=== PATIENT | female | born 1990 | race African-American/Black ===

== ENCOUNTER 2019-03-09 12:29 | Emergency (ER) | payer OTHER ==
--- NOTE | 2019-03-09 12:42 | PDOC ---
Rapid Medical Evaluation Chief Complaint: Constipation Time Seen by Provider: 03/09/19 12:38 Medical Evaluation: Allergies Allergy/AdvReac Type Severity Reaction Status Date / Time No Known Allergies Allergy Verified 05/21/18 07:47 03/09/19 12:38 I have performed a brief in-person evaluation of this patient. The patient presents with a chief complaint of: constipation x 4 days, no fevers Nausea/vomiting. no vaginal drainge or bleeding - uncomplicated pregnacy Pertinent physical exam findings: 7Mos preg belly, mild obvious discomfort I have ordered the following: nothing The patient will proceed to the ED for further evaluation. 03/09/19 12:41 Discharge Disposition - Diagnosis Constipation - Referrals - Patient Instructions - Post Discharge Activity
[2019-03-09] MEDS ORDERED: GLYCERIN 1 RECTAL SUPPOSITORY, ADULT PR ONE (12:44)
[2019-03-09 12:47] VITALS: BMI 25.7
[2019-03-09] MEDS ORDERED: GLYCERIN 1 RECTAL SUPPOSITORY, PEDIATRIC RC ONE (12:49)
--- NOTE | 2019-03-09 13:18 | PDOC ---
History of Present Illness - General Chief Complaint: Constipation Stated Complaint: SEVEN MONTH UT/CONSTIPATION Time Seen by Provider: 03/09/19 12:38 History Source: Patient - History of Present Illness Initial Comments: 03/09/19 13:33 33 week female complains of constipation for the last 4 days. Denies abdominal pain, cramping, vaginal bleeding, vaginal discharge.patient reports that the baby is moving well No past medical history Past History - Past Medical History Allergies/Adverse Reactions: Allergies Allergy/AdvReac Type Severity Reaction Status Date / Time No Known Allergies Allergy Verified 03/09/19 12:39 Home Medications: Ambulatory Orders NK [No Known Home Medication] 05/21/18 COPD: No - Suicide/Smoking/Psychosocial Hx Smoking History: Never smoked Have you smoked in the past 12 months: No Hx Alcohol Use: No Drug/Substance Use Hx: No Review of Systems - Review of Systems Able to Perform ROS?: Yes Is the patient limited [place] proficient: No ABD/GI: Yes: Constipated. No: Symptoms Reported, See HPI, Abdominal Distended, Abd. Pain w/ defecation, Blood Streaked Bowels, Diarrhea, Difficulty Swallowing , Nausea, Poor Appetite, Poor Fluid Intake, Rectal Bleeding, Vomiting, Indigestion, Abdominal cramping, Tarry Stools, Other *Physical Exam - Vital Signs Last Vital Signs Temp Pulse Resp BP Pulse Ox 98.3 F 108 H 18 137/70 5 L 03/09/19 12:40 03/09/19 12:40 03/09/19 12:40 03/09/19 12:40 03/09/19 12:40 - Physical Exam General Appearance: Yes: Appropriately Dressed Gastrointestinal/Abdominal: positive: Other (gravid abdomen. nontender) Integumentary: positive: Normal Color, Dry, Warm Neurologic: positive: Fully Oriented, Alert, Normal Mood/Affect ED Treatment Course - Medications Given in the ED: ED Medications Discontinued Medications Generic Name Dose Route Start Last Admin Trade Name Freq PRN Reason Stop Dose Admin Glycerin 1 each 03/09/19 12:44 03/09/19 13:01 Glycerin Suppository Adult - [place] 03/09/19 12:45 1 each ONCE ONE Administration Medical Decision Making - Medical Decision Making 03/09/19 13:53 A: constipation P: glycerin given in the ED> fleet enema given. patient send to L&D to be cleared *DC/Admit/Observation/Transfer Diagnosis at time of Disposition: Constipation Qualifiers: Constipation type: unspecified constipation type Qualified Code(s): K59.00 - Constipation, unspecified - Discharge Dispostion Disposition: HOME - Referrals - Patient Instructions Printed Discharge Instructions: Constipation Additional Instructions: Drink plenty of fluids. Increase fiber in your diet. Follow-up with your OB/ [facility]. return to the ER if you are soaking 2 pads per hour, severe abdominal pain, or worsening symptoms. - Post Discharge Activity Forms/Work/School Notes: Back to Work
[2019-03-09] MEDS ORDERED: SODIUM PHOSPHATE/NA BIPHOS 133 ML ENEMA PR ONE (13:30)
[2019-03-09 14:49] VITALS: BP 106/59; PULSE 95; TEMP 98.6
== END 2019-03-09 15:33 | disposition home or self-care (01) ==
LOC: JER 12:29 → JERFT 14:09
DX: O26.893 Other specified pregnancy related conditions, third trimester (principal); O99.613 Diseases of the digestive system complicating pregnancy, third trimester; K59.00 Constipation, unspecified; Z3A.33 33 weeks gestation of pregnancy
CPT/HCPCS: 99281-25

== ENCOUNTER 2019-04-14 01:30 | Inpatient (IN) | payer OTHER | END 2019-04-16 14:52 | disposition home or self-care (01) | LOC: JLDR 01:30 → J3W 09:45 ==

== ENCOUNTER 2021-01-22 13:55 | Emergency (ER) | payer OTHER ==
[2021-01-22 14:22] VITALS: BP 139/93; PULSE 108; TEMP 98.2; BMI 21.9
[2021-01-22] MEDS ORDERED: KETOROLAC TROMETHAMINE 30 MG/1 ML VIAL IVPUSH ONE (16:07)
[2021-01-22] MEDS ORDERED: DICYCLOMINE HCL 10 MG CAPSULE PO ONE (16:07)
[2021-01-22] MEDS ORDERED: DICYCLOMINE HCL 10 MG CAPSULE ONE (16:22)
[2021-01-22] MEDS ORDERED: KETOROLAC TROMETHAMINE 30 MG/1 ML VIAL ONE (16:23)
[2021-01-22 17:10] LABS: BASO % 0.3 % (0-2.0); EOS % 5.4 % (0-4.5); HEMATOCRIT 38.2 % (32.4-45.2); HEMOGLOBIN 12.5 GM/dL (10.7-15.3); LYMPH % 34.8 % (8-40); MCH 29.3 pg (25.7-33.7); MCHC 32.8 g/dl (32.0-36.0); MEAN CELL VOLUME 89.4 fl (80-96); MONO % 10.3 % (3.8-10.2); NEUT % 49.2 % (42.8-82.8); PLATELET COUNT 333 K/MM3 (134-434); RBC 4.27 M/mm3 (3.60-5.2); WHITE BLOOD COUNT 4.9 K/mm3 (4.0-10.0)
[2021-01-22] MEDS ORDERED: FAMOTIDINE 20 MG TABLET PO ONE (17:24)
[2021-01-22 17:33] LABS: PH,URINE 5.5 (5.0-8.0); URINE APPEARANCE CLEAR; URINE BILIRUBIN NEGATIVE (NEGATIVE); URINE COLOR YELLOW; URINE GLUCOSE (UA) NEGATIVE (NEGATIVE); URINE KETONE TRACE (NEGATIVE); URINE LEUK ESTERASE NEGATIVE (NEGATIVE); URINE NITRITE NEGATIVE (NEGATIVE); URINE PROTEIN NEGATIVE (NEGATIVE); URINE UROBILINOGEN 0.2 mg/dL (0.2-1.0)
[2021-01-22] MEDS ORDERED: FAMOTIDINE 20 MG TABLET ONE (17:33)
[2021-01-22 17:39] LABS: CHLORIDE 105 mmol/L (98-107); SODIUM 139 mmol/L (136-145)
[2021-01-22 17:43] LABS: ALBUMIN 3.8 g/dl (3.4-5.0)
[2021-01-22 17:44] LABS: ANION GAP 6 MMOL/L (8-16); CO2 28 mmol/L (21-32); GLUCOSE,RANDOM 79 mg/dL (74-106); LIPASE 86 U/L (73-393)
[2021-01-22 17:47] LABS: CREATININE 0.6 mg/dL (0.55-1.3); SGOT/AST 12 U/L (15-37)
[2021-01-22 17:48] LABS: BILIRUBIN,TOTAL 0.9 mg/dL (0.2-1); SGPT/ALT 15 U/L (13-61)
[2021-01-22 17:49] LABS: ALK PHOS 85 U/L (45-117)
[2021-01-22 17:54] LABS: TOT PROT 7.6 g/dl (6.4-8.2)
== END 2021-01-22 18:45 | disposition home or self-care (01) ==
LOC: JER 13:55
DX: K62.89 Other specified diseases of anus and rectum (principal)
CPT/HCPCS: 36415; 80053; 81003; 83690; 84702; 85025; 87086; 99283-25

== ENCOUNTER 2022-05-07 17:28 | Inpatient (IN) | payer OTHER ==
[2022-05-07 17:35] VITALS: RESP 18; TEMP 98.2; BMI 23.1
[2022-05-07] MEDS ORDERED: FAMOTIDINE 20 MG TABLET PO ONE (18:01)
[2022-05-07] MEDS ORDERED: diphenhydrAMINE HCL 25 MG CAPSULE (FP) PO ONE ×4 (18:01→22:24)
[2022-05-07] MEDS ORDERED: diphenhydrAMINE HCL 50 MG CAPSULE PO ONE (18:12)
[2022-05-07] MEDS ORDERED: FAMOTIDINE 20 MG TABLET ONE (18:22)
[2022-05-07] MEDS ORDERED: predniSONE 20 MG TABLET (UD) PO ONE (18:36)
[2022-05-07] MEDS ORDERED: predniSONE 20 MG TABLET (UD) ONE (19:40)
[2022-05-07] MEDS ORDERED: EPINEPHrine 1:1,000 0.3 MG/0.3 ML SYR IM ONE (23:50)
[2022-05-08] MEDS ORDERED: EPINEPHrine/PF 1 MG/1 ML (1:1,000) AMPULE ONE (00:20)
[2022-05-08] MEDS ORDERED: methylPREDNISolone NA SUCC 125 MG/2 ML VIAL IVPUSH ONE (09:56)
[2022-05-08] MEDS ORDERED: methylPREDNISolone NA SUCC 125 MG/2 ML VIAL ONE (09:59)
[2022-05-08] MEDS ORDERED: FAMOTIDINE 20 MG TABLET PO SCH (10:00)
[2022-05-08] MEDS ORDERED: FAMOTIDINE 20 MG TABLET ONE (10:49)
[2022-05-08 12:00] VITALS: BP 115/60; PULSE 65
== END 2022-05-08 12:07 | disposition home or self-care (01) | DRG 566 ==
LOC: JER 17:28 → UNDOADMOB 05-08 01:07 → JERBED 05-08 01:07 → INTOOBSV 05-08 09:56 → OBSVTOIN 05-08 09:56 → JERBED 05-08 09:56
PROVIDERS: ADMIT Internal Medicine; ATTEND Internal Medicine
DX: O99.712 Diseases of the skin and subcutaneous tissue complicating pregnancy, second trimester (principal); T78.3XXA Angioneurotic edema, initial encounter; T36.95XA Adverse effect of unspecified systemic antibiotic, initial encounter; Z3A.19 19 weeks gestation of pregnancy
CPT/HCPCS: 93005; 93010; 99285-25; C9803-CS; J0171; U0003; U0005

== ENCOUNTER 2023-02-21 13:27 | Emergency (ER) | payer OTHER ==
[2023-02-21 13:29] VITALS: BP 133/59; PULSE 86; RESP 18; TEMP 98.5; BMI 25.0
[2023-02-21] MEDS ORDERED: TETRACAINE 0.5% HCL 0.6ML DROPPER.BOTTLE OD ONE (13:55)
[2023-02-21] MEDS ORDERED: FLUORESCEIN NA 1 EA STRIP OD ONE (13:56)
[2023-02-21] MEDS ORDERED: TETRACAINE 0.5% OPHTH SOLN 2 ML BOTTLE ONE ×2 (13:56→13:57)
[2023-02-21] MEDS ORDERED: FLUORESCEIN NA 1 EA STRIP ONE (13:56)
== END 2023-02-21 14:26 | disposition home or self-care (01) ==
LOC: JERFT 13:27
DX: H57.89 Other specified disorders of eye and adnexa (principal); H53.71 Glare sensitivity; S05.02XA Injury of conjunctiva and corneal abrasion without foreign body, left eye, initial encounter; X58.XXXA Exposure to other specified factors, initial encounter
CPT/HCPCS: 99283-25

== ENCOUNTER 2023-11-15 12:46 | Emergency (ER) | payer OTHER ==
[2023-11-15 12:54] VITALS: RESP 18; BMI 25.0
[2023-11-15 13:57] VITALS: BP 122/75; PULSE 105; TEMP 98.2
[2023-11-15] MEDS: DEXTROSE 5%-LACTATED RINGERS 1,000 ML IV SCH ×2 (14:00→15:30)
[2023-11-15] MEDS ORDERED: DEXTROSE 5%-LACTATED RINGERS 1,000 ML IV SCH ×2 (14:00→14:15)
[2023-11-15] MEDS ORDERED: FAMOTIDINE 20 MG/50 ML IVPB 20 MG/50 ML MG IVPB ONE (14:14)
[2023-11-15] MEDS: FAMOTIDINE 20 MG/50 ML IVPB 20 MG/50 ML MG IVPB ONE (14:16)
[2023-11-15 15:46] LABS: EPI CELLS >36 /uL (0-25.1); HYALINE CASTS 8 /uL (0-3.1); PH,URINE 5.5 (5.0-8.0); URINE APPEARANCE TURBID; URINE BACTERIA 3943 /uL (0-1359); URINE BILIRUBIN 1+ (NEGATIVE); URINE COLOR DK YELLOW; URINE GLUCOSE (UA) NEGATIVE (NEGATIVE); URINE KETONE 4+ (NEGATIVE); URINE LEUK ESTERASE 1+ (NEGATIVE); URINE NITRITE NEGATIVE (NEGATIVE); URINE PROTEIN 1+ (NEGATIVE); URINE RBC 36 /uL (0-23.9); URINE WBC 91 /uL (0-25.8)
[2023-11-15 15:59] LABS: POTASSIUM 3.1 mmol/L (3.5-5.1)
[2023-11-15 16:03] LABS: ALBUMIN 2.4 g/dl (3.4-5.0); BLOOD UREA NITROGEN 10.4 mg/dL (7-18); CALCIUM 8.1 mg/dL (8.5-10.1)
[2023-11-15 16:05] LABS: CREATININE 0.5 mg/dL (0.55-1.3)
[2023-11-15 16:07] LABS: BILIRUBIN,TOTAL 1.2 mg/dL (0.2-1); TOT PROT 6.4 g/dl (6.4-8.2)
[2023-11-15 16:57] LABS: BASO % 0.1 % (0-2.0); EOS % 1.1 % (0-4.5); HEMATOCRIT 34.4 % (32.4-45.2); HEMOGLOBIN 11.2 GM/dL (10.7-15.3); LYMPH % 12.9 % (8-40); MCH 28.7 pg (25.7-33.7); MCHC 32.6 g/dl (32.0-36.0); MEAN CELL VOLUME 88.2 fl (80-96); MEAN PLT VOLUME 8.8 fl (7.5-11.1); MONO % 10.5 % (3.8-10.2); NEUT % 75.4 % (42.8-82.8); PLATELET COUNT 238 10^3/uL (134-434); RDW 13.6 % (11.6-15.6); WHITE BLOOD COUNT 8.3 K/mm3 (4.0-10.0)
[2023-11-15] MEDS: ONDANSETRON 4 MG/2 ML VIAL IVPB ONE (16:57)
== END 2023-11-15 17:55 | disposition home or self-care (01) ==
LOC: JER 12:46
PROC: 3E033GC Introduction of Other Therapeutic Substance into Peripheral Vein, Percutaneous Approach (ICD-10-PCS; principal; 2023-11-15)
DX: O26.892 Other specified pregnancy related conditions, second trimester (principal); R10.13 Epigastric pain; Z3A.25 25 weeks gestation of pregnancy
CPT/HCPCS: 36415; 80053; 81003; 82150; 83690; 85025; 96365; 99284-25

== ENCOUNTER 2024-02-11 06:00 | Inpatient (IN) | payer OTHER ==
[2024-02-11] MEDS ORDERED: LIDOCAINE HCL 1% PRESERVATIVE FREE - 30ML VIAL ONE (06:20)
[2024-02-11] MEDS ORDERED: OXYTOCIN 20 UNITS in 0.9% NS 20 UNIT/1,000 ML INFUS.BAG IV ONE ×2 (06:21→07:41)
[2024-02-11 06:57] LABS: BASO % 0.5 % (0-2.0); EOS % 1.8 % (0-4.5); HEMATOCRIT 37.9 % (32.4-45.2); HEMOGLOBIN 12.3 GM/dL (10.7-15.3); LYMPH % 22.6 % (8-40); MCH 27.2 pg (25.7-33.7); MCHC 32.4 g/dl (32.0-36.0); MEAN CELL VOLUME 84.1 fl (80-96); MEAN PLT VOLUME 9.3 fl (7.5-11.1); MONO % 10.4 % (3.8-10.2); NEUT % 64.7 % (42.8-82.8); PLATELET COUNT 226 10^3/uL (134-434); RBC 4.51 M/mm3 (3.60-5.2); RDW 14.4 % (11.6-15.6)
[2024-02-11 06:58] LABS: INR 1.02 (0.83-1.09); PROTHROMBIN TIME (PATIENT) 11.5 SEC (9.7-13.0)
[2024-02-11] MEDS ORDERED: IBUPROFEN 600 MG TABLET (FP) PO ONE (06:59)
[2024-02-11] MEDS: IBUPROFEN 600 MG TABLET (FP) PO PRN (07:00)
[2024-02-11 07:03] VITALS: BMI 25.8
[2024-02-11 07:09] LABS: BLOOD UREA NITROGEN 10.5 mg/dL (7-18); CALCIUM 9.3 mg/dL (8.5-10.1); POTASSIUM 3.6 mmol/L (3.5-5.1)
[2024-02-11 07:13] LABS: CREATININE 0.7 mg/dL (0.55-1.3)
[2024-02-11] MEDS ORDERED: BENZOCAINE 20% 57 GM BOTTLE TP PRN (07:18)
[2024-02-11] MEDS ORDERED: oxyCODONE HCL 5 MG TABLET PO PRN (07:18)
[2024-02-11] MEDS ORDERED: METHYLERGONOVINE MALEATE 0.2 MG/1 ML AMP IM PRN (07:18)
[2024-02-11] MEDS ORDERED: BENZOCAINE 28 GM HEMORRHOIDAL OINTMENT TP PRN (07:18)
[2024-02-11] MEDS ORDERED: WITCH HAZEL 50% (TUCKS) 40 PAD/JAR PAD TP PRN (07:18)
[2024-02-11] MEDS ORDERED: BISACODYL 10 MG SUPP.RECT RC PRN (07:18)
[2024-02-11] MEDS: OXYTOCIN 20 UNITS in 0.9% NS 20 UNIT/1,000 ML INFUS.BAG IV SCH (07:45)
[2024-02-11] MEDS: ACETAMINOPHEN 325 MG TABLET (FP) PO PRN (11:55)
[2024-02-11] MEDS: SENNOSIDES/DOCUSATE COMBO (SENNA PLUS) TABLET (UD) PO PRN (21:19)
[2024-02-12 08:01] LABS: BASO % 0.3 % (0-2.0); EOS % 1.9 % (0-4.5); HEMATOCRIT 33.5 % (32.4-45.2); HEMOGLOBIN 10.6 GM/dL (10.7-15.3); LYMPH % 20.7 % (8-40); MCH 26.9 pg (25.7-33.7); MCHC 31.8 g/dl (32.0-36.0); MEAN CELL VOLUME 84.7 fl (80-96); MEAN PLT VOLUME 9.2 fl (7.5-11.1); MONO % 9.3 % (3.8-10.2); NEUT % 67.8 % (42.8-82.8); PLATELET COUNT 188 10^3/uL (134-434); RBC 3.95 M/mm3 (3.60-5.2); RDW 14.4 % (11.6-15.6); WHITE BLOOD COUNT 14.1 K/mm3 (4.0-10.0)
[2024-02-13 10:08] VITALS: BP 123/78; PULSE 76; RESP 17; TEMP 98
== END 2024-02-13 12:50 | disposition home or self-care (01) | DRG 560 ==
LOC: JLDR 06:00 → J3W 08:50
PROVIDERS: ADMIT Obstetrics & Gynecology; ATTEND Obstetrics & Gynecology
PROC: 10E0XZZ Delivery of Products of Conception, External Approach (ICD-10-PCS; principal; 2024-02-11)
PROC: 0HQ9XZZ Repair Perineum Skin, External Approach (ICD-10-PCS; 2024-02-11)
DX: O42.02 Full-term premature rupture of membranes, onset of labor within 24 hours of rupture (principal); O70.0 First degree perineal laceration during delivery; O69.1XX0 Labor and delivery complicated by cord around neck, with compression, not applicable or unspecified; Z37.0 Single live birth; Z3A.39 39 weeks gestation of pregnancy
CPT/HCPCS: 36415; 59409; 80048; 85025; 85610; 85730; 86780; 86850; 86900; 86901